=== PATIENT | female | born 1960 ===

== ENCOUNTER → 2018-03-18 08:37 | Outpatient (CLI) | payer OTHER ==
[~2018-03-18 08:37] MED LIST: ATENOLOL25 MG PO; SYNTHROID88 MCG
== END | disposition home or self-care (01) ==
LOC: LAB 08:37
DX: E56.1 Deficiency of vitamin K (principal)

== ENCOUNTER 2018-03-30 14:13 | Outpatient (CLI) | payer OTHER | END 2018-03-30 14:17 | disposition home or self-care (01) | LOC: LAB 14:13 | DX: D64.89 Other specified anemias (principal); D68.8 Other specified coagulation defects; N39.0 Urinary tract infection, site not specified; E88.89 Other specified metabolic disorders; A49.02 Methicillin resistant Staphylococcus aureus infection, unspecified site; Z76.89 Persons encountering health services in other specified circumstances; R82.79 Other abnormal findings on microbiological examination of urine ==

== ENCOUNTER 2018-04-13 05:39 | Day surgery (SDC) | payer OTHER ==
[~2018-04-13 05:39] MED LIST changes: +CYMBALTA60 MG PO; +DICLOFENAC POTA50 MG PO; +FLONASE ALLERG9.9 ML; +PRAVASTATIN SOD20 MG PO; +TOPROL XL50 M1 PO
== END 2018-04-13 14:00 | disposition home or self-care (01) ==
LOC: CIR.AMB 05:39
DX: M75.111 Incomplete rotator cuff tear or rupture of right shoulder, not specified as traumatic (principal); M19.011 Primary osteoarthritis, right shoulder; M75.21 Bicipital tendinitis, right shoulder

== ENCOUNTER 2019-04-05 10:29 | Emergency (ER) | payer OTHER ==
[~2019-04-05] VITALS: Ht 160 cm; Wt 59.9 kg
[2019-04-05] MEDS ORDERED: BACLOFEN10 MG (10:38)
== END 2019-04-05 20:52 | disposition home or self-care (01) ==
LOC: ER 10:29 → CPU-OBS 11:23 → ER 11:23
DX: R07.89 Other chest pain (principal)